=== PATIENT | male | born 1970 | race Caucasian/White ===

== ENCOUNTER 2022-06-21 06:51 | Day surgery (SDC) | payer OTHER, SELFPAY ==
[2022-04-09 13:32] VITALS: BMI 23.7
[2022-06-08 07:43] VITALS: BMI 25.0
--- NOTE | 2022-06-21 06:57 | WPDANESEPPF ---
Anes - Initial Pre Proc Eval Procedure: Operation Date: 06/21/22 08:30 Proposed Procedures p Screening Colonoscopy - Larry Hinton MD Date/Time: 06/21/22 06:57 Surgeon: Larry Hinton MD Pre Op Diagnosis: Neoplasm Screening Patient Data Age: 51 Gender: M Height: 1.8 m Weight: 81.5 kg Allergies Allergy/AdvReac Type Severity Reaction Status Date / Time No Known Allergies Allergy Verified 06/21/22 07:44 Home Medications Medication Instructions Recorded Confirmed Type sodium,potassium,mag sulfates 17.5 See Rx Instructions PO .COMPLEX 04/09/22 06/21/22 Rx gram-3.13 gram-1.6 gram oral soln #354 mL (Suprep Bowel Prep Kit) Patient hx anesthesia problems: none Family hx anesthesia problems: none Results Review: All pre-operative results and documents have been reviewed as part of the pre-operative evaluation. [facility] Social History Social History (Updated 01/26/22 @ 15:59 by Cira Chester) Smoking status: Never smoker Second hand tobacco smoke exposure: No Alcohol intake: current Drinks per week: 1 Substance use: never Substance use type: does not use Living arrangements: with family Occupation/Education: occupation Gender identity (if verbalized by the patient): Male Sexual Orientation (if Verbalized by the Patient): Straight or Heterosexual Spiritual care concerns: No Anes - Eval Final PreProcedure Day of Procedure 06/21/22 06:57 Patient weight: overweight Heart: regular rate and rhythm Lungs: clear to auscultation Airway: Mallampati scale class II Neurological: alert and oriented Last oral intake: >/= 8 hours ASA classification: I Emergent: no Anesthetic plan: proceed Anesthesia type and monitoring: general GIVS and standard monitoring Results Review: All pre-operative results and documents have been reviewed as part of the pre-operative evaluation. Informed Consent: The patient's anesthetic plan and its attendant risks and benefits were discussed with the patient/family/POA. Questions were solicited and answers provided to the satisfaction of the patient/family/POA.
[2022-06-21 07:25] VITALS: BP 137/90; PULSE 66; RESP 16; TEMP 36.6; O2SAT 99
[2022-06-21] MEDS: LACTATED RINGERS 1,000 ML 150 ML IV CONT (07:51)
--- NOTE | 2022-06-21 08:21 | P.HP_ITS ---
History of Present Illness History of Present Illness Consent: Risks, benefits, and alternatives have been discussed and questions answered. Patient agrees to proceed with procedure. Chief complaint: Neoplasm Screening Narrative: Miah Salguero is a 51 year old male Presents for screening colonoscopy. Patient's current weight appetite and bowel movements are normal. Patient denies abdominal pain. He has had no bleeding. Family history is noncontributory. Review of Systems Review of Systems: Review of systems noncontributory. [facility] Social History Social History (Updated 01/26/22 @ 15:59 by Cira Chester) Smoking status: Never smoker Second hand tobacco smoke exposure: No Alcohol intake: current Drinks per week: 1 Substance use: never Substance use type: does not use Living arrangements: with family Occupation/Education: occupation Gender identity (if verbalized by the patient): Male Sexual Orientation (if Verbalized by the Patient): Straight or Heterosexual Spiritual care concerns: No Meds Home Medications and Allergies Home Medications Medication Instructions Recorded Confirmed Type sodium,potassium,mag sulfates 17.5 See Rx Instructions PO .COMPLEX 04/09/22 06/21/22 Rx gram-3.13 gram-1.6 gram oral soln #354 mL (Suprep Bowel Prep Kit) Allergies Allergy/AdvReac Type Severity Reaction Status Date / Time No Known Allergies Allergy Verified 06/21/22 07:44 Vital Signs Vital Signs - 24 hr 06/21/22 07:25 Temperature 97.9 F Pulse Rate 66 Respiratory Rate 16 Blood Pressure 137/90 Pulse Oximetry 99 Oxygen Delivery Room Air Exam Narrative: Physical exam reveals patient to be alert. Vital signs stable. HEENT exam is unremarkable. Patient is anicteric. Lungs are clear to auscultation and percussion. Heart is without murmur or extra sounds. Abdomen bowel sounds present soft nontender with no organomegaly. Digital external rectal exam is normal. Assessment and Plan Assessment and plan (1) Encounter for screening colonoscopy: Code(s): Z12.11 - Encounter for screening for malignant neoplasm of colon Status: Acute Assessment and Plan: Patient presents for screening colonoscopy. He appears to be at average risk for colon polyps. Further recommendations will be given after endoscopy.
[2022-06-21 08:49] VITALS: BP 96/66; PULSE 62; RESP 14; O2SAT 97
[2022-06-21 08:59] VITALS: BP 92/70; PULSE 51; RESP 16; O2SAT 98
[2022-06-21 09:09] VITALS: BP 124/94; PULSE 63; RESP 18; O2SAT 98
--- NOTE | 2022-06-21 12:42 | WPDANESPN ---
Anes - Prog Note Post-Op Date/Time: 06/21/22 12:42 Cardiovascular status: normal Respiratory status: normal Airway patency: baseline Mental status: baseline Post-Op hydration status: normal Vital Signs: Last Vital Signs Temp 36.6 C 06/21/22 07:25 Pulse 63 06/21/22 09:09 Resp 18 06/21/22 09:09 BP 124/94 H 06/21/22 09:09 Pulse Ox 98 06/21/22 09:09 O2 Del Method Room Air 06/21/22 09:09 Pain Score (VAS): 0 I/O: Intake & Output 06/20/22 06/21/22 06/21/22 23:59 07:59 15:59 Intake Total 760 Balance 760 Post-procedural complaints: none Patient Feedback: Patient satisfied with anesthetic care. Other Findings: Patient vital signs back to baseline. Patient denies nausea and vomiting. Patient's pain under control. Patient OK for discharge.
== END 2022-06-21 09:30 | disposition home or self-care (01) ==
PROVIDERS: PCP Family Medicine; Visit Provider Internal Medicine Gastroenterology
PROC: 0DJD8ZZ Inspection of Lower Intestinal Tract, Via Natural or Artificial Opening Endoscopic (ICD-10-PCS; CPT 45378; principal; 2022-06-21 08:30)
DX: Z12.11 Encounter for screening for malignant neoplasm of colon (principal)
CPT/HCPCS: 45385

== ENCOUNTER 2022-06-21 09:00 | Outpatient (NON) | payer OTHER, SELFPAY | END 2022-06-21 09:01 | disposition home or self-care (01) | LOC: ANHLAB 06-22 08:33 | PROVIDERS: PCP Family Medicine; Visit Provider Internal Medicine Gastroenterology | DX: Z12.11 Encounter for screening for malignant neoplasm of colon (principal); D12.5 Benign neoplasm of sigmoid colon | CPT/HCPCS: 88305 ==

== ENCOUNTER 2023-09-27 01:24 | Emergency (ER) | payer BC, SELFPAY ==
--- NOTE | ~2023-09-27 | CT_ITS ---
Non-contrast Head CT History: Dizziness Technique: Axial non-contrast imaging of the brain was performed. Dose reduction technique was used on this scan by utilizing automated exposure control and iterative reconstruction technique. The dose -length product (DLP) was 605.33 mGy-cm. Findings: There is no evidence of intracranial hemorrhage, mass lesion, or acute infarct. Brain par enchyma appears normal. The ventricles and subarachnoid spaces are normal in size. The calvarium ap pears normal. The visualized paranasal sinuses and mastoid air cells are clear. Impression: No significant abnormality seen. Reviewed, dictated and finalized at location . Impression: No significant abnormality seen.
--- NOTE | ~2023-09-27 | XR_ITS ---
Portable chest x-ray Comparison: None Clinical History: Weakness Findings: Lungs are clear, without focal consolidation or pleural effusion. Cardiomediastinal silho uette is unremarkable. Bones and soft tissues are unremarkable. Impression: Clear lungs. Reviewed, dictated and finalized at location M. Impression: Clear lungs.
[2023-09-27 01:27] VITALS: BP 142/108; PULSE 54; RESP 14; TEMP 36.6; O2SAT 100
--- NOTE | 2023-09-27 01:37 | ECG_ITS ---
SEE SCANNED COPY FOR CONFIRMED REPORT MTDD
--- NOTE | 2023-09-27 01:46 | ECG_ITS ---
SEE SCANNED COPY FOR CONFIRMED REPORT MTDD
--- NOTE | 2023-09-27 01:46 | ED.DIZZY ---
HPI - Dizziness General Chief Complaint: Dizziness Stated Complaint: dizzy Time Seen by Provider: 09/27/23 01:34 Source: patient Limitations: no limitations History of Present Illness HPI Narrative: Patient is a 52-year-old male presents to the emergency department complaining of dizziness, nausea, vomiting, feeling overall weak. Patient notes this started around 9:30 p.m. after returning home from watching fireworks, denies any history is in the past, states that when he would move his head because and do feel that the was spinning and then it would stop and go completely away and then he feels like any time he would move it would restart again any is afraid to move but denies any dizziness currently. Patient has associated nausea and multiple episodes of nonbloody nonbilious emesis. Patient denies any recent injuries, recent illness, ear pain, hearing changes, tinnitus, headache, sore throat, nasal congestion, eye pain, numbness, focal weakness, chest pain, difficulty breathing. Patient denies changes in his voice, difficulty swallowing. Patient denies any new or change medications. Related Data Allergies Allergy/AdvReac Type Severity Reaction Status Date / Time No Known Allergies Allergy Verified 02/28/23 15:11 Review of Systems Review of Systems: A 10 system review of systems was completed on the patient and is negative except for what is stated in the HPI. Nursing and ancillary documentation was reviewed. [facility] Social History Social History Smoking status: Never smoker Second hand tobacco smoke exposure: No Alcohol intake: current Drinks per week: 1 Substance use: never Substance use type: does not use Living arrangements: with family Occupation/Education: occupation Gender identity (if verbalized by the patient): Male Sexual Orientation (if Verbalized by the Patient): Straight or Heterosexual Spiritual care concerns: No Comments At time of signature, I have reviewed and agree with nursing past medical, surgical, social and family history unless otherwise noted. Please see the nursing chart for further information. There is no relevant family history pertinent to the presenting complaint. Exam Narrative: CONST: No acute distress. Well nourished. Sitting very still in the bed appearing scared to move his head. HENMT: Head is normocephalic and atraumatic. Moist mucous membranes. No posterior oropharynx erythema. Bilateral tympanic membranes are without erythema or bulging. EYES: No conjunctival icterus, injection, or pallor. PERRL. NECK: No meningeal signs. RESP: Able to speak in full sentences. Normal respiratory effort. CTAB. CARDIO: Regular rate. Regular rhythm. 2+ DP and radial pulses bilaterally. GI: Nondistended. No tenderness to palpation. Soft. : No CVA tenderness to palpation. SKIN: No rashes or lesions noted on exposed skin. NEURO: Oriented x3. Moves all extremities. No dysmetria with [id number] testing bilaterally. Normal [id number]-[id number] testing bilaterally. No pronator drift. Bilateral upper and lower extremity motor strength is 5/5. Sensation intact to light touch throughout all 4 extremities. No facial asymmetry. Extraocular motions intact. No nystagmus. Speech is clear and fluent. EXTREM/MSK/BACK: No pedal edema. PSYCH: Normal affect. Course Vital Signs Vital signs: Vital Signs Temperature 98 F 09/27/23 01:27 Pulse Rate 54 L 09/27/23 01:27 Respiratory Rate 14 09/27/23 01:27 Blood Pressure 142/108 H 09/27/23 01:27 Pulse Oximetry 100 09/27/23 01:27 Oxygen Delivery Room Air 09/27/23 01:27 Temperature 98 F 09/27/23 01:27 Pulse Rate 62 09/27/23 03:01 Respiratory Rate 18 09/27/23 03:01 Blood Pressure 121/91 H 09/27/23 03:01 Pulse Oximetry 97 09/27/23 03:01 Oxygen Delivery Room Air 09/27/23 01:27 MDM - Dizziness MDM Narrative Medical decision making lynne
[2023-09-27] MEDS: SODIUM CHLORIDE 0.9% IV 500 ML 999 ML IV CONT (01:57)
[2023-09-27] MEDS: SODIUM CHLORIDE 0.9% IV 1,000 ML 999 ML IV CONT (01:58)
[2023-09-27] MEDS: ONDANSETRON INJ 4 MG/2 ML VIAL IV PUSH (01:59)
[2023-09-27 02:00] LABS: Basophils Absolute Auto 0.1 K/mm3 (0.0-0.1); Basophils Percent Auto 0.4 % (0.2-1.2); Eosinophils Percent Auto 0.2 % (0-4.4); Hematocrit 43.9 % (42.0-52.0); Hemoglobin 14.9 g/dL (14.0-18.0); Immature Granulocyte Absolute 0.05 K/mm3 (0.00-0.031); Immature Granulocyte Percent A 0.4 % (0-0.5); Lymphocytes Absolute Auto 0.91 K/mm3 (0.9-3.2); Mean Corpuscular HGB Conc 33.9 g/dl (32-36); Mean Corpuscular Hemoglobin 28.9 pg (26-34); Mean Corpuscular Volume 85.1 fl (80-100); Mean Platelet Volume 9.5 fl (7.4-10.4); Monocytes Absolute Auto 0.5 K/mm3 (0.1-0.6); Monocytes Percent Auto 3.8 % (2.6-8.5); Neutrophils Absolute Auto 11.6 K/mm3 (1.3-6.7); Neutrophils Percent Auto 88.2 % (45.5-73.1); Platelet Count Result 299 k/mm3 (150-375); Red Blood Count 5.16 M/mm3 (4.6-6.20); Red Cell Distribution Width 13.1 % (11.5-14.5); White Blood Count 13.1 K/mm3 (4.5-10.0)
[2023-09-27] MEDS: FAMOTIDINE 20 MG/2 ML VIAL IV PUSH (02:00)
[2023-09-27] MEDS: MECLIZINE HCL 25 MG TABLET PO (02:01)
--- NOTE | 2023-09-27 02:04 | PC.NURSE ---
Patient ended up spitting up Meclizine tablet.
[2023-09-27 02:17] LABS: Alanine Aminotransferase 21 U/L (6-50); Albumin Level 4.4 g/dL (3.5-5.1); Alkaline Phosphatase 61 U/L (38-126); Anion Gap 6 mmol/L (4-12); Aspartate Amino Transferase 29 U/L (17-59); Bilirubin,Total 0.6 mg/dL (0.2-1.3); Blood Urea Nitrogen 14 mg/dL (9-20); Calcium 9.2 mg/dL (8.4-10.2); Carbon Dioxide 30 mmol/L (22-30); Chloride 100 mmol/L (98-107); Estimated CRCL calculation 80 ml/min; Estimated Glomerular Filt Rate > 60; Glucose 135 mg/dL (65-110); Potassium 3.6 mmol/L (3.4-5.0); Sodium 136 mmol/L (137-145)
[2023-09-27 02:41] VITALS: BP 129/93; PULSE 58; RESP 16; O2SAT 100
[2023-09-27 02:49] LABS: Ethanol < 10 mg/dL (<10)
[2023-09-27 02:57] LABS: Troponin I < 0.012 ng/mL (0.000-0.034)
[2023-09-27 03:01] VITALS: BP 121/91; PULSE 62; RESP 18; O2SAT 97
[2023-09-27 04:01] VITALS: BP 143/88; PULSE 51; RESP 16; O2SAT 99
== END 2023-09-27 04:23 | disposition home or self-care (01) ==
PROVIDERS: Emergency Provider Student in an Organized Health Care Education/Training Program; PCP Family Medicine
DX: H81.10 Benign paroxysmal vertigo, unspecified ear (principal); R00.1 Bradycardia, unspecified
CPT/HCPCS: 36415; 70450; 71045; 80053; 80307; 83735; 84443; 84484; 85025; 93005; 96361; 96374; 96375; 99284; A9270; J2405; J7030; J7040